=== PATIENT | female | born 1940 | race Caucasian/White ===

== ENCOUNTER 2018-10-02 14:57 | Emergency (ER) | payer MEDICARE, OTHER ==
[~2018-10-02] VITALS: Ht 157.5 cm; Wt 72.6 kg
[~2018-10-02 14:57] MED LIST: ALPRAZOLAM1 M1 PO; CYMBALTA30 MG PO; METOPROLOL TAR100 MG PO; NORCO 7.5-3251 EACH PO; QUETIAPINE FUM100 MG PO; TEKTURNA300 MG PO
--- OUTSIDE RECORDS SUMMARY | 2018-10-02 15:01 | XMS REPORT | Summary of Care ---
Author Author [facility] [place] Organization [facility] [place] Address Unknown Phone Unavailable Encounter HQ Encntr_alias(FIN) [id number] Date(s): 09/24/17 - 09/24/17 [facility] [place] [address] [place] [phone] Discharge Disposition: Home or Self Care Attending Physician: Jhon Hadley MD Vital Signs No data available for this section Problem List No data available for this section Allergies, Adverse Reactions, Alerts Substance Reaction Severity Status codeine Active Medications No data available for this section Results No data available for this section Immunizations No data available for this section Procedures No data available for this section Social History No data available for this section Assessment and Plan No data available for this section
--- OUTSIDE RECORDS SUMMARY | 2018-10-02 15:01 | XMS REPORT | Summary of Care ---
Author Author [facility] [place] Organization [facility] [place] Address Unknown Phone Unavailable Encounter HQ Jessicantr_alicon(FIN) [id number] Date(s): 04/10/16 - 04/10/16 [facility] [place] [address] [place] [address]- [facility] [phone] Discharge Disposition: Home Attending Physician: Didi Rubalcava MD Vital Signs No data available for [...]
[2018-10-02] MEDS ORDERED: HYDROCODONE/APAP 7.5MG-325MG 1 EA TAB PO PRN ×2 (15:15→15:30)
--- NOTE | 2018-10-02 16:57 | Diagnostic Imaging Report ---
EXAM: CT Pelvis WITHOUT contrast INDICATION: ^left hip pain r/o fx ^[id number] ^[id number] COMPARISON: None. TECHNIQUE: Pelvis were scanned utilizing a multidetector helical scanner from the iliac crest to the pubic symphysis without administration of IV contrast. Coronal and sagittal reformations were obtained. Routine protocol was performed. IV CONTRAST: None ORAL CONTRAST: Water COMPLICATIONS: None RADIATION DOSE: Total DLP: 394.93 mGy*cm Estimated effective dose: (DLP x 0.015 x size factor) mSv CTDIvol has been reviewed. It is below the limits set by the Radiation Protocol Committee (RPC). FINDINGS: LINES and TUBES: None. GI TRACT: No evidence of bowel obstruction. Severe diverticulosis of the visualized colon without evidence of diverticulitis. PELVIC ORGANS/BLADDER: Uterus and adnexa are unremarkable on unenhanced CT assessment. Bladder is not fully distended and appears unremarkable. LYMPH NODES: No lymphadenopathy. VESSELS: Mild aortoiliac atherosclerotic calcification. PERITONEUM / RETROPERITONEUM: No free air or fluid. BONES: Degenerative changes of lower lumbar spine. No acute osseous abnormality. SOFT TISSUES: Unremarkable. IMPRESSION: 1. No evidence of left hip fracture. 2. Colonic diverticulosis without evidence of diverticulitis. Signed by: Dr. Ron Childress MD on 10/02/2018 4:54 PM
== END 2018-10-02 19:45 | disposition home or self-care (01) ==
LOC: ER 14:57
DX: M54.42 Lumbago with sciatica, left side (principal); R26.2 Difficulty in walking, not elsewhere classified; I10 Essential (primary) hypertension
CPT/HCPCS: 72192; 99283

== ENCOUNTER 2019-07-06 18:22 | Inpatient (IN) | payer MEDICARE, OTHER ==
[~2019-07-06] VITALS: Ht 157.5 cm; Wt 78.6 kg
--- OUTSIDE RECORDS SUMMARY | 2019-07-06 18:26 | XMS REPORT | Continuity of Care Document ---
Author Author [facility] Organization [facility] Address Unknown Phone Unavailable Care Team Providers Care Insurance Claims Adjuster Name Role Phone [facility] Unavailable Unavailable Problems Problem Status Onset Date Classification Date Reported Comments Source R05 - COUGH Active 09/23/2017 [facility] Medications No Data Provided for This Section Allergies, Adverse Reactions, Alerts Substance Category Reaction Severity Reaction type Status Date Reported Comments Source codeine Assertion Drug allergy Active [facility] Immunizations No Data Provided for This Section Results No Data Provided for This Section Pathology Reports No Data Provided for This Section Diagnostic Reports Report Value Date Source Chest 2 views DX Exam: Two-view chest x-ray Reason for Exam: - chronic cough Comparison Exam: X-ray 04/10/2016 Discussion: Cardiomediastinal silhouette is within normal limits for size. Large air-fluid level is seen overlying the mediastinum most compatible with a hiatal hernia. This a chronic finding. No pleural effusion identified. No focal lung consolidations appreciated. No appreciable evidence seen for pneumothorax. No acute bony abnormalities. Impression: 1. Chronic large hiatal hernia. Lung parenchyma is unremarkable. 09/24/2017 [facility] Chest 2 views DX CHEST PA AND LATERAL History: 75-year-old female with cough. Comparison: None. Findings: Lungs: The lungs are expanded without an infiltrate, consolidation or nodule. Pleura: No pleural effusion. Mediastinum and pattie: Unremarkable. A large retrocardiac hiatal hernia noted. Heart size: Normal. Skeletal: Bones are osteopenic with mild osteoarthritic changes throughout spine. IMPRESSION: There is no acute cardio pulmonary abnormality. Large retrocardiac hiatal hernia. 04/10/2016 [facility] Consultation Notes No Data Provided for This Section Discharge Summaries No Data Provided for This Section History and Physicals No Data Provided for This Section Vital Signs No Data Provided for This Section Encounters Location Location Details Encounter Type Encounter Number Reason For Visit Attending Provider ADM Date DC Date Status Source [facility] [place] Out[facility] [id number] Didi Rubalcava 04/10/2016 04/11/2016 [facility] [place] [facility] [id number] Jhon Hadley 09/24/2017 09/25/2017 [facility] Procedures No Data Provided for This Section Assessment and Plan No Data Provided for This Section Plan of Care No Data Provided for This Section Social History Social History Date Source No data available for this section 09/25/2017 [facility] Family History No Data Provided for This Section Advance Directives No Data Provided for This Section Functional Status No Data Provided for This Section
[2019-07-06] MEDS ORDERED: SODIUM CHLORIDE 0.9% 1000ML 1,000 ML IV STA (18:38)
[2019-07-06] MEDS ORDERED: ONDANSETRON HCL INJ 2MG/ML 2ML 2 MG/ML VIAL IV NR (18:45)
[2019-07-06] MEDS ORDERED: ASPIRIN 81 MG CHEW TAB PO ONE (18:45)
[2019-07-06 18:58] LABS: BASOPHILS # (AUTO) 0.1 (0.0-0.1); BASOPHILS % 0.8 % (0.0-1.0); EOSINOPHILS # (AUTO) 0.1 (0.0-0.4); EOSINOPHILS % 1.8 % (0.0-6.0); HEMATOCRIT 35.1 % (34.2-44.1); HEMOGLOBIN 11.9 g/dL (12.0-16.0); LYMPHOCYTES # (AUTO) 2.4 (1.0-3.2); LYMPHOCYTES % 32.7 % (18.0-39.1); MEAN CORPUSCULAR HEMOGLOBIN 27.9 pg (28-32); MEAN CORPUSCULAR HGB CONC 33.9 g/dL (31-35); MEAN CORPUSCULAR VOLUME 82.4 fL (81-99); MONOCYTES # (AUTO) 0.8 (0.2-0.8); MONOCYTES % 10.9 % (4.4-11.3); NEUTROPHILS % 53.4 % (38.7-80.0); PLATELET COUNT 399 x10e3/uL (140-360); RED BLOOD COUNT 4.26 x10e6/uL (3.6-5.1); RED CELL DISTRIBUTION WIDTH 16.9 % (11.7-14.4)
[2019-07-06 19:06] LABS: INR 0.81; PROTHROMBIN TIME 11.7 seconds (11.9-14.5)
[2019-07-06 19:07] LABS: PARTIAL THROMBOPLASTIN TIME 26.2 seconds (23.8-35.5)
[2019-07-06 19:16] LABS: ALANINE AMINOTRANSFERASE 6 IU/L (0-55); ALBUMIN 4.1 g/dL (3.5-5.0); ALBUMIN/GLOBULIN RATIO 1.2 (0.8-2.0); ALKALINE PHOSPHATASE 66 IU/L (40-150); BLOOD UREA NITROGEN 16 mg/dL (7-26); BUN/CREATININE RATIO 19 (6-25); CALCIUM 9.4 mg/dL (8.4-10.2); CARBON DIOXIDE 26 mmol/L (22-29); CHLORIDE 84 mmol/L (98-107); CREATINE KINASE 71 IU/L (29-168); CREATININE, SERUM 0.86 mg/dL (0.57-1.11); EST GLOMERULAR FILTRATION RATE > 60 ML/MIN (60-); GLUCOSE 100 mg/dL (74-118)
[2019-07-06 19:23] LABS: B-TYPE NATRIURETIC PEPTIDE2 34.5 pg/mL (0-100)
[2019-07-06 19:24] LABS: SODIUM 118 mmol/L (136-145)
--- NOTE | 2019-07-06 19:26 | NUR ---
STRAIGHT CATH PERFORMED, SPECIMEN COLLECTED AND SENT TO LAB. TOLERATED WELL.
--- NOTE | 2019-07-06 19:30 | Diagnostic Imaging Report ---
Exam: Head CT without contrast History: Weakness, nausea Comparison studies: None Technique: Axial images were obtained from the skull base to the vertex. Coronal and sagittal images reconstructed from the axial data. Dose modulation, iterative reconstruction, and/or weight based adjustment of the mA/kV was utilized to reduce the radiation dose to as low as reasonably achievable. Radiation dose: Total DLP: 921 mGy*cm. Estimated effective dose: DLP x 0.015 Intravenous contrast: None Findings: Scalp: No abnormalities. Bones: No fractures, blastic or lytic lesions. Ventricles: Mild compensatory dilatation. No hydrocephalus. Extra-axial spaces: No masses, no fluid collection. Parenchyma: Mild generalized parenchymal volume loss with a frontotemporal predominance. No mass, acute hemorrhage or acute or chronic cortical insults. A few scattered ill-defined and mildly confluent hypodensities in the supratentorial white matter are nonspecific but are most compatible with chronic microvascular ischemic changes. Sellar/suprasellar region: No abnormalities. Craniocervical junction: Patent foramen magnum. No Chiari one malformation. Incidental findings: Lens replacement related to previous cataract surgery. Atherosclerotic calcifications in the carotid siphons and intradural vertebral arteries. IMPRESSION: No acute intracranial abnormalities. Chronic findings: 1. Moderate microvascular ischemic changes. 2. Mild generalized parenchymal volume loss with a frontotemporal predominance. Signed by: Dr. Josué Bay M.D. on 07/06/2019 7:26 PM
[2019-07-06 19:32] LABS: BILIRUBIN,URINE NEGATIVE (NEGATIVE); CLARITY,URINE SL CLOUDY (CLEAR); COLOR,URINE YELLOW (YELLOW); KETONES,URINE NEGATIVE (NEGATIVE); LEUKOCYTE ESTERASE ,URINE NEGATIVE (NEGATIVE); NITRITE,URINE NEGATIVE (NEGATIVE); PROTEIN,URINE DIPSTICK TRACE (NEGATIVE); URINE UROBILINOGEN 1 mg/dL (0.2 - 1)
--- NOTE | 2019-07-06 19:40 | Diagnostic Imaging Report ---
EXAMINATION: CHEST SINGLE (PORTABLE) INDICATION: ^ERMD ORDER ^[id number] ^[id number] ^Y COMPARISON: 08/29/2012 FINDINGS: AP view TUBES and LINES: None. LUNGS: Lungs are well inflated. Lungs are clear. There is no evidence of pneumonia or pulmonary edema. Retrocardiac density, suspicious for hiatal hernia. PLEURA: No pleural effusion or pneumothorax. HEART AND MEDIASTINUM: The cardiomediastinal silhouette is prominent. BONES AND SOFT TISSUES: No acute osseous lesion. Degenerative changes of the shoulder joints. Soft tissues are unremarkable. UPPER ABDOMEN: No free air under the diaphragm. IMPRESSION: No acute thoracic abnormality. Retrocardiac density, suspicious for hiatal hernia. Signed by: Dr. Ron Childress MD on 07/06/2019 7:37 PM
[2019-07-06 19:46] LABS: BACTERIA,URINE RARE /HPF; EPITHELIAL CELLS,URINE FEW /LPF
[2019-07-06] MEDS: SODIUM CHLORIDE 0.9% 1000ML 1,000 ML IV SCH (20:07)
[2019-07-06] MEDS ORDERED: ONDANSETRON HCL INJ 2MG/ML 2ML 2 MG/ML VIAL IV PRN (20:15)
--- OUTSIDE RECORDS SUMMARY | 2019-07-06 20:28 | XMS REPORT | Continuity of Care Document ---
Author Author [employer] Organization [employer] Address Unknown Phone Unavailable Care Team Providers Care Semiconductor Engineer Name Role Phone [employer] Unavailable Unavailable Problems Problem Status Onset Date Classification Date Reported Comments Source R05 - COUGH Active 09/23/2017 [facility] Medications No Data Provided for This Section Allergies, Adverse Reactions, Alerts Substance Category Reaction Severity Reaction type Status Date Reported Comments Source codeine Assertion Drug allergy Active [facility] Immunizations No Data Provided for This Section [...] hernia. Lung parenchyma is unremarkable. 09/24/2017 [facility] Chest 2 views DX CHEST PA AND [...] abnormality. Large retrocardiac hiatal hernia. 04/10/2016 [facility] Consultation Notes No Data Provided for This Section Discharge Summaries No Data Provided for This Section History and Physicals No Data Provided for This Section Vital Signs No Data Provided for This Section Encounters Location Location Details Encounter Type Encounter Number Reason For Visit Attending Provider ADM Date DC Date Status Source [facility] [place] [facility] [id number] Didi Rubalcava 04/10/2016 04/11/2016 [facility] [place] [facility] [id number] Jhon Hadley 09/24/2017 09/25/2017 [facility] Procedures No Data Provided for This Section Assessment and Plan No Data Provided for This Section Plan of Care No Data Provided for This Section Social History Social History Date Source No data available for this section 09/25/2017 [facility] Family History No Data Provided for This Section Advance Directives No Data Provided for This Section Functional Status No Data Provided for This Section
--- OUTSIDE RECORDS SUMMARY | 2019-07-06 20:29 | XMS REPORT ---
Author [facility] Address Unknown Phone Unavailable Care Team Providers Care Radio Program Director Name Role Phone Alejandro ORTEZ Unavailable Unavailable Melissa SILVA Unavailable Unavailable Payers Payer Name Policy Type Policy Number Effective Date Expiration Date Problems This patient has no known problems. Allergies, Adverse Reactions, Alerts Allergy Name Allergy Type Status Severity Reaction(s) Onset Date Inactive Date Treating Clinician Comments tramadol DA Active SV 2018-10-07 00:00:00 codeine DA Active DC 2015-04-13 00:00:00 iodine DA Active SV 2015-04-13 00:00:00 ciprofloxacin DA Active DC 2015-04-13 00:00:00 Medications This patient has no known medications. Results Test Description Test Time Test Comments Text Results Atomic Results Result Comments CHEST SINGLE (PORTABLE) 2019-07-06 19:36:00 [place] [address] Patient Name: SPEEDY DE LEÓN MR #: [id number] : 1940 Age/Sex: 79/F Req #: [id number] Adm Physician: Ordered by: LISET TAYLOR BOWLING BALL PATCHER Report #: [id number] Location: ER Room/Bed: Procedure: DX/CHEST SINGLE (PORTABLE) Exam Date: 07/06/19 Exam Time: 1904 REPORT STATUS: Signed EXAMINATION: CHEST SINGLE (PORTABLE) JOSE D CATION: ERENDIRAD ORDER [id number] Y COMPARISON: 08/29/2012 FINDINGS: AP view TUBES and LINES: None. LUNGS: Lungs are well inflated. Lungs are clear. There is no evidence of pneumonia or pulmonary edema. Retrocardiac density, suspicious for hiatal hernia. PLEURA: No pleural effusion or pneumothorax. HEART AND MEDIASTINUM: The cardiomediastinal silhouette is prominent. BONES AND SOFT TISSUES: No acute osseous lesion. Degenerative changes of the shoulder joints. Soft tissues are unremarkable. UPPER ABDOMEN: No free air under the diaphragm. IMPRESSION: No acute thoracic abnormality. Retrocardiac density, suspicious for hiatal hernia. Signed by: Dr. Keily Gaffney MD on 07/06/2019 7:37 PM Dictated By: KEILY GAFFNEY MD 36 Transcribed By: JAVED on 07/06/191936 COPY TO: LISET TAYLOR BOWLING BALL PATCHER CT BRAIN WO 2019-07-06 19:21:00 [place] [address] Patient Name: SPEEDY DE LEÓN MR #: [id number] : 1940 Age/Sex: 79/F Req #: [id number] Adm Physician: Ordered by: LISET TAYLOR BOWLING BALL PATCHER Report #: [id number] Location: ER Room/Bed: Procedure: CT/CT BRAIN WO Exam Date: 07/06/19 Exam Time: 185 REPORT STATUS: Signed Exam: Head CT without contrast History: Weakness, nausea Comparison studies: None Technique: Axial images were obtained from the skull base to the vertex. Coronal and sagittal images reconstructed from the axial data. Dose modulation, iterative reconstruction, and/or weight based adjustment of the mA/kV was utilized to reduce the radiation dose to as low as reasonably achievable. Radiation dose: Total DLP: 921 mGy*cm. Estimated effective dose: DLP x 0.015 Intravenous contrast: None Findings: Scalp: No abnormalities. Bones: No fractures, blastic or lytic lesions. Ventricles: Mild compensatory dilatation. No hydrocephalus. Extra-axial spaces: No masses, no fluid collection. Parenchyma: Mild generalized parenchymal volume loss with a frontotemporal predominance. No mass, acute hemorrhage or acute or chronic cortical insults. A few scattered ill-defined and mildly confluent hypodensities in the supratentorial white matter are nonspecific but are most compatible with chronic microvascular ischemic changes. Sellar/suprasellar region: No abnormalities. Craniocervical junction: Patent foramen magnum. No Chiari one malformation. Incidental findings: Lens replacement related to previous cataract surgery. Atherosclerotic calcifications in the carotid siphons and intradural vertebral arteries. IMPRESSION: No acute intracranial abnormalities. Chronic findings: 1. Moderate microvascular ischemic changes. 2. Mild generalized parenchymal volume loss with a frontotemporal predominance. Signed by: Dr. Bo Donovan M.D. on 07/06/2019 7:26 PM Dictated By: BO DONOVAN MD 25 Transcribed By: JAVED on 07/06/191925 COPY TO: LISET TAYLOR NP COLON,BIOPSY 2018-12-22 13:47:00 RUN DATE: 12/22/18 [facility] PAGE 1 RUN TIME: 1347 Specimen Inquiry RUN USER: INTERFACE PATIENT: SPEEDY DE LEÓN LOC: MIRA U #: [id number] AGE/SX: 78/F [facility]: Williams Noriega MD : [birth year] BED: A DIS: STATUS: ADM IN TLOC: SPEC #: [id number]:[id number] RECD: 12/21/18 STATUS: KRUNAL SY #: [id number] NICHOLAS: 12/20/18 [facility] DR: Williams Noriega MD ENTERED: 12/21/18 SP TYPE: COLONBX OTHR DR: DOES_NOT KNOW Self Referred Deepthi Florentino MD, Tojo MDORDERED: SURG PATH [facility] 02/21 CODES: L90496 - CECUM, NOS A46025 J28637 - CECUM, NOS BIOPSY, NOS V96123 R27138 - CECUM, NOS TUBULAR ADENOMA A69619 V75487 - COLON, NOS BIOPSY, NOS M07589 G04419 - COLON, NOS TUBULAR ADENOMA COPIES TO: DOES_NOT KNOW Self Referred Deepthi Florentino MD [address] [place], [place] [id number] Williams Noriega MD [address] [facility] [address] [place] [address] [place] [address] [facility] [address] [place] [address] PROCEDURES: SURG PATH LVL 4 (12/21/18-1029) TISSUES: A. CECUM, NOS - CECAL POLYP BX B. DESCENDING COLON - DESCENDING COLON POLYP CLINICAL HISTORY HYPONATREMIA, HYPERKALEMIA, HYPOXIA CONTINUED ON NEXT PAGE RUN DATE: 12/22/18 [facility] - Lab PAGE 2 RUN TIME: 1347 Specimen Inquiry RUN USER: INTERFACE SPEC #: [id number]:HOOKER:[id number] PATIENT: SPEEDY DE LEÓN #[id number] (Continued) CPT CODES CPT CODE(S): 77062V3 , , , , , , FINAL DIAGNOSIS A. Colon, cecum, biopsy: TUBULAR ADENOMA B. Colon, descending, biopsy: TUBULAR ADENOMA GROSS DESCRIPTION A. Cecal polyp. The specimen consists of three fragments measuring 2 mm each, submitted as A1. B. Descending colon polyp. The specimen consists of three fragments measuring 3-4 mm, submitted as B1. /tc/cm MICROSCOPIC DESCRIPTION A. Cecal polyp. The polyp contains glands with decreased mucin that are lined by columnar cells with stratified nuclei that have increased mitotic activity but have not lost their polarity. B. Descending colon polyp. The polyp contains glands with decreased mucin that are lined by columnar cells with stratified nuclei that have increased mitotic activity but have not lost their polarity. Signed SIGNATURE ON FILE Simi Bright Jerry 12/22/18 1347 END OF REPORT - CT ABD PELVIS W/CONT 2018-12-21 17:26:00 Patient Name: SPEEDY DE LEÓN Unit No: [id number] EXAMS: CPT CODE: [id number] CT ABD PELVIS W/CONT 01446 CT Abdomen and Pelvis with contrast. Location: B2 Clinical indication: 78-year-old with anemia Comparison: February 23, 2010 Technique: Computed axial images were obtained from the diaphragms through the pubic symphysis following IV administration of 100 mL Isovue-300. Up to date CT equipment and radiation dose technique were utilized. Findings: Abdomen: A large hiatal hernia is present. The liver, spleen, adrenal glands, and pancreas are without acute abnormality. There is a 1 cm low- density structure in the quadrate lobe of the liver, likely cyst. There is mild renal cortical thinning. No hydronephrosis. There is atherosclerotic calcification of the abdominal aorta. No bowel obstruction. Pelvis: The appendix is not identified. No pericecal inflammation or fluid. There is extensive distal colon diverticulosis. There is focal wall thickening of the descending colon, with some questionable mild adjacent hazy inflammation. Urinary bladder is partially distended. Uterus is present. No acute osseous abnormality. Impression: 1. Circumferential wall thickening of the descending colon, mild. Differential considerations include colitis and neoplasm. Further evaluation is recommended. 2. Sigmoid diverticulosis. 3. Large hiatal hernia. at 1726 Reported and signed by: Willie Miller M.D. CC: Williams Noriega; Melvi Goss NP Technologist: Ingrid Dorsey RT(R)(CT); Beny Hughes CTDI: DLP: Trnscrpt: 12/21/2018 (2468) [email or web address] ANASTACIA CHOWDHURY [place] NAME: SPEEDY DE LEÓN [address] PHYS: [place] [address] : 1940 AGE: 78 SEX: F LOC: Z.345 A PHONE #: [phone] EXAM DATE: 12/21/2018 STATUS: ADM IN FAX #: [phone] RAD #: D/C DT PAGE 1 Signed Report Patient Name: SPEEDY DE LEÓN Unit No: [id number] EXAMS: CPT CODE: [id number] CT ABD PELVIS W/CONT 18639 <Continued> Orig Print D/T: S: 12/21/2018 (6313) ANASTACIA Lee NAME: SPEEDY DE LEÓN [address] PHYS: [place] [address] : 1940 AGE: 78 SEX: F LOC: Z.345 A PHONE #: [phone] EXAM DATE: 12/21/2018 STATUS: ADM IN FAX #: [phone] RAD #: D/C DT PAGE 2 Signed Report B-TYPE NATRIURETIC PEPTIDE 2018-12-21 13:35:00 B-TYPE NATRIURETIC PEPTIDE (test code=BNP) 100.0 PG/ML 0-100 GASTRIC,[id number] 11:10:00 RUN DATE: 12/21/18 [facility] - Lab PAGE 1 RUN TIME: 1110 Specimen Inqui ry RUN USER: INTERFACE PATIENT: SPEEDY DE LEÓN ACCT #: [id number] [facility] U #: [id number] AGE/SX: 78/F ROOM: [facility] RE12/15/18[facility] DR: Williams Noriega MD : [birth year] BED: A DIS: STATUS: ADM IN TLOC: SPEC #: [id number]:HOOKER:[id number] RECD: 12/20/18 STATUS: KRUNAL REQ #: [id number] NICHOLAS: 12/20/[address]: Williams Noriega ENTERED: 12/20/18 SP TYPE: GASTRIC BX OT DR: DOES_N OT KNOW Self Referred Deepthi Gupta MD, T ojo MDORDERED: SURG PATH [facility] 4 CODES: P45662 S14125 - STOMACH, NOS BIOPSY, NOS R75635 - GASTRIC ANTRUM COPIES TO: DOES_NOT KNOW Self Referred Deepthi Florentino MD [address] [place] [address] [address] [place] [address] Williams Noriega MD [address] [facility] [address] [place] [address] [place] [address] [address] [place] [address] PROCEDURES: SURG PATH LVL 4 (12/20/18-1013) TISSUES: A. GASTRIC ANTRUM - RANDOM GASTRIC BX CLINICAL HISTORY HYPONATREMIA, HYPERKALEMIA, HYPOXIA CPT CODES CPT CODE(S): 56684 , , , , , , CONTINUED ON NEXT PAGE RUN DATE: 12/21/18 [facility] PAGE 2 RUN TIME: 1110 Specimen Inquiry RUN USER: INTERFACE SPEC #: [id number]:[id number] PATIENT: SPEEDY DE LEÓN #[id number] (Continued) FINAL D IAGNOSIS Stomach, random, biopsy: MILD REACTIVE CHANGES NO SIGNIFICA NT INFLAMMATORY ACTIVITY NO HELICOBACTER ORGANISMS IDENTIFIED GROSS DE SCRIPTION Random gastric biopsy. The specimen consists of two fragments jackie uring 2 mm and 3 mm, submitted as A1. /tc/cm MICROSCOPIC DESCRIPTION R andom gastric biopsy. Sections of corpus demonstrate no significant inflammator y activity. There is mild stromal retraction with immature fibrosis, and incr eased cell turnover. There is no histologic evidence of Helicobacter infectio n. /cm Signed SIGNATURE ON FILE Manoj Ryan puja 12/21/18 1110 END OF REPORT BASIC METABOLIC [id number] 08:50:00* Test Item Value Reference Range Comments SODIUM (test code=NA) 134 MMOL/L 137-145 POTASSIUM (test code=K) 3.8 MMOL/L 3.5-5.1 CHLORIDE (test code=CL) 95 MMOL/L 98-107 CARBON DIOXIDE (test code=CO2) 29 MMOL/L 22-30 GLUCOSE (test code=GLU) 107 MG/DL 74-106 BLOOD UREA NITROGEN (test code=BUN) 12 MG/DL 7-17 GLOMERULAR FILTRATION RATE (test code=GFR) > 60 Reporting units: ml/min/1.73 m2 (Modified MDRD Formula)Reference Range: > or=60 ml/min/1.73 m2 CREATININE (test code=CREAT) 0.60 MG/DL 0.52-1.04 CALCIUM (test code=CA) 9.5 MG/DL 8.4-10.2 CBC W/AUTO [id number] 06:32:00* Test Item Value Reference Range Comments WHITE BLOOD CELL (test code=WBC) 9.2 K/MM3 3.8-9.8 RED BLOOD CELL (test code=RBC) 4.06 M/MM3 3.58-4.97 HEMOGLOBIN (test code=HGB) 9.4 G/DL 11.2-14.9 HEMATOCRIT (test code=HCT) 30.4 % 33.2-43.5 MEAN CELL VOLUME (test code=MCV) 75 fL 80.7-99.1 MEAN CELL HGB (test code=MCH) 23.2 pg 27.0-34.1 MEAN CELL HGB CONCETRATION (test code=MCHC) 30.9 % 32.2-35.7 RED CELL DISTRIBUTION WIDTH (test code=RDW) 18.8 % 12.1-15.2 PLATELET COUNT (test code=PLT) 355 K/MM3 129-368 MEAN PLATELET VOLUME (test code=MPV) 8.5 fl 7.4-10.4 NEUTROPHIL % (test code=NT%) 50.7 % 43-75 IMMATURE GRANULOCYTE % (test code=IG%) 0.3 % 0.0-2.0 LYMPHOCYTE % (test code=LY%) 32.4 % 14-44 MONOCYTE % (test code=MO%) 11.7 % 4-13 EOSINOPHIL % (test code=EO%) 4.1 % 0-6 BASOPHIL % (test code=BA%) 0.8 % 0-2 NUCLEATED RBC % (test code=NRBC%) 0.2 % 0-1.0 NEUTROPHIL # (test code=NT#) 4.7 K/mm3 2.0-7.6 IMMATURE GRANULOCYTE # (test code=IG#) 0.03 x10 3/uL 0-0.03 LYMPHOCYTE # (test code=LY#) 3.0 K/mm3 1.0-3.8 MONOCYTE # (test code=MO#) 1.08 K/mm3 0.1-0.8 EOSINOPHIL # (test code=EO#) 0.4 K/mm3 0.0-0.2 BASOPHIL # (test code=BA#) 0.07 K/mm3 0.0-0.2 NUCLEATED RBC # (test code=NRBC#) 0.0 K/mm3 0.0-0.1 HGB [id number] 02:50:00* Test Item Value Reference Range Comments HEMOGLOBIN (test code=HGB) 9.5 G/DL 11.2-14.9 HEMATOCRIT (test code=HCT) 31.7 % 33.2-43.5 GLUCOSE BEDSIDE [id number] 11:56:00* Test Item Value Reference Range Comments GLUCOSE BEDSIDE TESTING (test code=GLUBED) 197 MG/DL 60-99 LIPOPROTEIN LDL [id number] 08:48:00* Test Item Value Reference Range Comments LIPOPROTEIN LDL DIRECT (test code=LDLDIR) 116 mg/dL 100-129 Reference Interval: mg/dL mmol/L Optimal <100 <2.6Near/above optimal 100-129 2.6- 3.3Borderline High 130-159 3.4-4.1High 160-189 4.1-4.9Very High >=190 >=4.9=========This LDL result is a direct measurement.========= Comments to Monogram And Letter Paster: PLEASE ADD TO THIS AM LAB DR KENDRICKALREADY DRAWN.AFHAUIVW-[id number] 08:48:00* Test Item Value Reference Range Comments TROPONIN-I (test code=TROPI) 0.113 NG/ML 0.012-0.033 Comments to Monogram And Letter Paster: PLEASE ADD TO THIS AM LAB DR KENDRICKALREADY DRAWN.LIPOPROTEIN LDL [id number] 08:31:00* Test Item Value Reference Range Comments LIPOPROTEIN LDL DIRECT (test code=LDLDIR) mg/dL 100-129 Comments to Monogram And Letter Paster: PLEASE ADD TO THIS AM LAB DR KENDRICKALREADY DRAWN.[id number] 08:31:00* Test Item Value Reference Range Comments TROPONIN-I (test code=TROPI) 0.113 NG/ML 0.012-0.033 Comments to Monogram And Letter Paster: PLEASE ADD TO THIS AM LAB DR ALLRED...ALREADY DRAWN.- XR CHEST [id number] 07:59:00 Patient Name: SPEEDY DE LEÓN Unit No: [id number] EXAMS: CPT CODE: [id number] XR CHEST 1V 33377 Location of dictation: B2 Portable chest one view. HISTORY: follow up COMMENT: Compared to 04/13/2015. Cardiac silhouette is stable. There are scattered aortic calcifications. The lungs are free of focal consolidation, pneumothorax or effusion. There may be scattered pleural plaques overlying the left upper lobe. The chest wall is intact. Visualized soft tissues and skeletal structures are unremarkable. There has been no significant changes. IMPRESSION: No active disease in the chest. at 0759 Reported and signed by: Teresa Worthy M.D. CC: Williams Goss NP Technologist: Sara Curtis RT(R) Transcrpt Date/Tm/Trnsp: 12/20/2018 (0759) [email or web address] Orig Print D/T: S: 12/20/2018 (0802) [facility] NAME: SPEEDY DE LEÓN [address] PHYS: THOSH.[email or web address] - [place] [address] : 1940 AGE: 78 SEX: F LOC: Z.345 A PHONE #: [phone] EXAM DATE: 12/20/2018 STATUS: ADM IN FAX #: [phone] RADIOLOGY NO: PAGE 1 Signed Report BASIC METABOLIC [id number] 07:28:00* Test Item Value Reference Range Comments SODIUM (test code=NA) 130 MMOL/L 137-145 POTASSIUM (test code=K) 4.1 MMOL/L 3.5-5.1 CHLORIDE (test code=CL) 96 MMOL/L 98-107 CARBON DIOXIDE (test code=CO2) 26 MMOL/L 22-30 GLUCOSE (test code=GLU) 105 MG/DL 74-106 BLOOD UREA NITROGEN (test code=BUN) 18 MG/DL 7-17 GLOMERULAR FILTRATION RATE (test code=GFR) > 60 Reporting units: ml/min/1.73 m2 (Modified MDRD Formula)Reference Range: > or=60 ml/min/1.73 m2 CREATININE (test code=CREAT) 0.70 MG/DL 0.52-1.04 CALCIUM (test code=CA) 9.5 MG/DL 8.4-10.2 CBC W/AUTO [id number] 07:06:00* Test Item Value Reference Range Comments WHITE BLOOD CELL (test code=WBC) 9.0 K/MM3 3.8-9.8 RED BLOOD CELL (test code=RBC) 3.36 M/MM3 3.58-4.97 HEMOGLOBIN (test code=HGB) 7.5 G/DL 11.2-14.9 HEMATOCRIT (test code=HCT) 25.2 % 33.2-43.5 MEAN CELL VOLUME (test code=MCV) 75 fL 80.7-99.1 MEAN CELL HGB (test code=MCH) 22.3 pg 27.0-34.1 MEAN CELL HGB CONCETRATION (test code=MCHC) 29.8 % 32.2-35.7 RED CELL DISTRIBUTION WIDTH (test code=RDW) 19.5 % 12.1-15.2 PLATELET COUNT (test code=PLT) 367 K/MM3 129-368 MEAN PLATELET VOLUME (test code=MPV) 8.9 fl 7.4-10.4 NEUTROPHIL % (test code=NT%) 47.1 % 43-75 IMMATURE GRANULOCYTE % (test code=IG%) 0.6 % 0.0-2.0 LYMPHOCYTE % (test code=LY%) 38.0 % 14-44 MONOCYTE % (test code=MO%) 9.7 % 4-13 EOSINOPHIL % (test code=EO%) 3.9 % 0-6 BASOPHIL % (test code=BA%) 0.7 % 0-2 NUCLEATED RBC % (test code=NRBC%) 0.0 % 0-1.0 NEUTROPHIL # (test code=NT#) 4.2 K/mm3 2.0-7.6 IMMATURE GRANULOCYTE # (test code=IG#) 0.05 x10 3/uL 0-0.03 LYMPHOCYTE # (test code=LY#) 3.4 K/mm3 1.0-3.8 MONOCYTE # (test code=MO#) 0.87 K/mm3 0.1-0.8 EOSINOPHIL # (test code=EO#) 0.4 K/mm3 0.0-0.2 BASOPHIL # (test code=BA#) 0.06 K/mm3 0.0-0.2 NUCLEATED RBC # (test code=NRBC#) 0.0 K/mm3 0.0-0.1 B-TYPE NATRIURETIC [id number] 16:05:00* Test Item Value Reference Range Comments B-TYPE NATRIURETIC PEPTIDE (test code=BNP) 74.0 PG/ML 0-100 BASIC METABOLIC [id number] 15:46:00* Test Item Value Reference Range Comments SODIUM (test code=NA) 131 MMOL/L 137-145 POTASSIUM (test code=K) 4.1 MMOL/L 3.5-5.1 CHLORIDE (test code=CL) 97 MMOL/L 98-107 CARBON DIOXIDE (test code=CO2) 26 MMOL/L 22-30 GLUCOSE (test code=GLU) 114 MG/DL 74-106 BLOOD UREA NITROGEN (test code=BUN) 17 MG/DL 7-17 GLOMERULAR FILTRATION RATE (test code=GFR) > 60 Reporting units: ml/min/1.73 m2 (Modified MDRD Formula)Reference Range: > or=60 ml/min/1.73 m2 CREATININE (test code=CREAT) 0.80 MG/DL 0.52-1.04 CALCIUM (test code=CA) 9.0 MG/DL 8.4-10.2 CBC W/AUTO [id number] 15:33:00* Test Item Value Reference Range Comments WHITE BLOOD CELL (test code=WBC) 9.2 K/MM3 3.8-9.8 RED BLOOD CELL (test code=RBC) 3.31 M/MM3 3.58-4.97 HEMOGLOBIN (test code=HGB) 7.5 G/DL 11.2-14.9 HEMATOCRIT (test code=HCT) 25.0 % 33.2-43.5 MEAN CELL VOLUME (test code=MCV) 76 fL 80.7-99.1 MEAN CELL HGB (test code=MCH) 22.7 pg 27.0-34.1 MEAN CELL HGB CONCETRATION (test code=MCHC) 30.0 % 32.2-35.7 RED CELL DISTRIBUTION WIDTH (test code=RDW) 19.0 % 12.1-15.2 PLATELET COUNT (test code=PLT) 353 K/MM3 129-368 MEAN PLATELET VOLUME (test code=MPV) 8.8 fl 7.4-10.4 NEUTROPHIL % (test code=NT%) 56.4 % 43-75 IMMATURE GRANULOCYTE % (test code=IG%) 0.4 % 0.0-2.0 LYMPHOCYTE % (test code=LY%) 29.3 % 14-44 MONOCYTE % (test code=MO%) 10.6 % 4-13 EOSINOPHIL % (test code=EO%) 2.9 % 0-6 BASOPHIL % (test code=BA%) 0.4 % 0-2 NUCLEATED RBC % (test code=NRBC%) 0.0 % 0-1.0 NEUTROPHIL # (test code=NT#) 5.2 K/mm3 2.0-7.6 IMMATURE GRANULOCYTE # (test code=IG#) 0.04 x10 3/uL 0-0.03 LYMPHOCYTE # (test code=LY#) 2.7 K/mm3 1.0-3.8 MONOCYTE # (test code=MO#) 0.97 K/mm3 0.1-0.8 EOSINOPHIL # (test code=EO#) 0.3 K/mm3 0.0-0.2 BASOPHIL # (test code=BA#) 0.04 K/mm3 0.0-0.2 NUCLEATED RBC # (test code=NRBC#) 0.0 K/mm3 0.0-0.1 GLUCOSE BEDSIDE [id number] 11:55:00* Test Item Value Reference Range Comments GLUCOSE BEDSIDE TESTING (test code=GLUBED) 156 MG/DL 60-99 LIPID PROFILE (CORONARY RISK)2018-12-19 10:46:00* Test Item Value Reference Range Comments TRIGLYCERIDES (test code=TRIG) 329 MG/DL TRIGLYCERIDES REFERENCE RANGE:Normal: <150 mg/dLBorderline High: 150-199 mg/dLHigh: 200-499 mg/dLVery High: >=500 mg/dL CHOLESTEROL (test code=CHOL) 202 MG/DL <200 HDL CHOLESTEROL (test code=HDL) 47 MG/DL 40-59 LIPOPROTEIN LDL (test code=LDL) 113 MG/DL 0-99 OPTIMAL.........<100 mg/dLNEAR OPTIMAL/ABOVE OPTIMAL.........100-129 mg/dL BORDERLINE HIGH.........130-159 mg/dL HIGH.........160-189 mg/dL VERY HIGH.........>/=190 mg/dL UNABLE TO DRAW BLOOD, REASON: PT REFUSEDNOTIFIED PATIENT CARE STAFF: IVETTE AT 0654 BY Erik TorresLIPID PROFILE (CORONARY RISK)2018-12-19 10:31:00 * Test Item Value Reference Range Comments TRIGLYCERIDES (test code=TRIG) 329 MG/DL TRIGLYCERIDES REFERENCE RANGE:Normal: <150 mg/dLBorderline High: 150-199 mg/dLHigh: 200-499 mg/dLVery High: >=500 mg/dL CHOLESTEROL (test code=CHOL) 202 MG/DL <200 HDL CHOLESTEROL (test code=HDL) 47 MG/DL 40-59 LIPOPROTEIN LDL (test code=LDL) MG/DL 0-99 UNABLE TO DRAW BLOOD, REASON: PT REFUSEDNOTIFIED PATIENT CARE STAFF: IVETTE AT 0654 BY Carole TorresAovqhhPRCRKBPH-[id number] 03:55:00* Test Item Value Reference Range Comments TROPONIN-I (test code=TROPI) 0.202 NG/ML 0.012-0.033 CALLED TO Julia POLLARD& READBACK ON 12/18/18 AT 0355 BY Knu Solorzano [id number] 18:36:00* Test Item Value Reference Range Comments TROPONIN-I (test code=TROPI) 0.240 NG/ML 0.012-0.033 CALLED TO BENJI Caban& READBACK ON 12/17/18 AT 1836 BY Kun Solorzano Comments to Monogram And Letter Paster: [id number] 12:23:00* Test Item Value Reference Range Comments TROPONIN-I (test code=TROPI) 0.156 NG/ML 0.012-0.033 CALLED TO NADINE LEBLANC V TROPI=0.156& READBACK ON 12/17/18 AT 1223 BY Ender Reyna [id number] 07:12:00* Test Item Value Reference Range Comments FERRITIN (test code=SIMONE) 9.4 NG/ML 11.1-264 CBC W/AUTO [id number] 07:01:00* Test Item Value Reference Range Comments WHITE BLOOD CELL (test code=WBC) 11.2 K/MM3 3.8-9.8 RED BLOOD CELL (test code=RBC) 3.58 M/MM3 3.58-4.97 HEMOGLOBIN (test code=HGB) 8.1 G/DL 11.2-14.9 HEMATOCRIT (test code=HCT) 26.6 % 33.2-43.5 MEAN CELL VOLUME (test code=MCV) 74 fL 80.7-99.1 MEAN CELL HGB (test code=MCH) 22.6 pg 27.0-34.1 MEAN CELL HGB CONCETRATION (test code=MCHC) 30.5 % 32.2-35.7 RED CELL DISTRIBUTION WIDTH (test code=RDW) 18.5 % 12.1-15.2 PLATELET COUNT (test code=PLT) 376 K/MM3 129-368 MEAN PLATELET VOLUME (test code=MPV) 8.7 fl 7.4-10.4 NEUTROPHIL % (test code=NT%) 51.9 % 43-75 IMMATURE GRANULOCYTE % (test code=IG%) 0.7 % 0.0-2.0 LYMPHOCYTE % (test code=LY%) 34.7 % 14-44 MONOCYTE % (test code=MO%) 9.5 % 4-13 EOSINOPHIL % (test code=EO%) 2.7 % 0-6 BASOPHIL % (test code=BA%) 0.5 % 0-2 NUCLEATED RBC % (test code=NRBC%) 0.0 % 0-1.0 NEUTROPHIL # (test code=NT#) 5.8 K/mm3 2.0-7.6 IMMATURE GRANULOCYTE # (test code=IG#) 0.08 x10 3/uL 0-0.03 LYMPHOCYTE # (test code=LY#) 3.9 K/mm3 1.0-3.8 MONOCYTE # (test code=MO#) 1.06 K/mm3 0.1-0.8 EOSINOPHIL # (test code=EO#) 0.3 K/mm3 0.0-0.2 BASOPHIL # (test code=BA#) 0.06 K/mm3 0.0-0.2 NUCLEATED RBC # (test code=NRBC#) 0.0 K/mm3 0.0-0.1 FE W/TOTAL IRON BINDING CAP.2018-12-17 06:45:00* Test Item Value Reference Range Comments SERUM IRON (test code=IRON) 21 MCG/DL 37-170 TOTAL IRON BINDING CAPACITY (test code=TIBC) 416 MCG/DL 265-497 IRON SATURATION (test code=FESAT) 5 % 12-57 BASIC METABOLIC [id number] 06:41:00* Test Item Value Reference Range Comments SODIUM (test code=NA) 129 MMOL/L 137-145 POTASSIUM (test code=K) 4.3 MMOL/L 3.5-5.1 CHLORIDE (test code=CL) 96 MMOL/L 98-107 CARBON DIOXIDE (test code=CO2) 26 MMOL/L 22-30 GLUCOSE (test code=GLU) 104 MG/DL 74-106 BLOOD UREA NITROGEN (test code=BUN) 21 MG/DL 7-17 GLOMERULAR FILTRATION RATE (test code=GFR) > 60 Reporting units: ml/min/1.73 m2 (Modified MDRD Formula)Reference Range: > or=60 ml/min/1.73 m2 CREATININE (test code=CREAT) 0.90 MG/DL 0.52-1.04 CALCIUM (test code=CA) 9.0 MG/DL 8.4-10.2 FE W/TOTAL IRON BINDING CAP.2018-12-17 06:36:00* Test Item Value Reference Range Comments SERUM IRON (test code=IRON) 21 MCG/DL 37-170 TOTAL IRON BINDING CAPACITY (test code=TIBC) MCG/DL 265-497 IRON SATURATION (test code=FESAT) % 12-57 HGB [id number] 17:32:00* Test Item Value Reference Range Comments HEMOGLOBIN (test code=HGB) 8.8 G/DL 11.2-14.9 PT GOT 1 UNIT OF BLOOD HEMATOCRIT (test code=HCT) 28.8 % 33.2-43.5 Is this a LINE draw? NB-TYPE NATRIURETIC [id number] 07:39:00* Test Item Value Reference Range Comments B-TYPE NATRIURETIC PEPTIDE (test code=BNP) 66.0 PG/ML 0-100 BASIC METABOLIC [id number] 07:11:00* Test Item Value Reference Range Comments SODIUM (test code=NA) 128 MMOL/L 137-145 POTASSIUM (test code=K) 4.4 MMOL/L 3.5-5.1 CHLORIDE (test code=CL) 98 MMOL/L 98-107 CARBON DIOXIDE (test code=CO2) 22 MMOL/L 22-30 ANION GAP (test code=GAP) 12 MMOL/L 14-24 GLUCOSE (test code=GLU) 105 MG/DL 74-106 BLOOD UREA NITROGEN (test code=BUN) 23 MG/DL 7-17 GLOMERULAR FILTRATION RATE (test code=GFR) > 60 Reporting units: ml/min/1.73 m2 (Modified MDRD Formula)Reference Range: > or=60 ml/min/1.73 m2 CREATININE (test code=CREAT) 0.90 MG/DL 0.52-1.04 CALCIUM (test code=CA) 8.7 MG/DL 8.4-10.2 [id number] 07:11:00* Test Item Value Reference Range Comments TROPONIN-I (test code=TROPI) 0.355 NG/ML 0.012-0.033 CALLED TO MANNY & READBACK ON 12/16/18 AT 0710 BY Celso Gallegos CBC W/AUTO [id number] 06:41:00* Test Item Value Reference Range Comments WHITE BLOOD CELL (test code=WBC) 10.0 K/MM3 3.8-9.8 RED BLOOD CELL (test code=RBC) 3.36 M/MM3 3.58-4.97 HEMOGLOBIN (test code=HGB) 7.2 G/DL 11.2-14.9 HEMATOCRIT (test code=HCT) 24.2 % 33.2-43.5 MEAN CELL VOLUME (test code=MCV) 72 fL 80.7-99.1 MEAN CELL HGB (test code=MCH) 21.4 pg 27.0-34.1 MEAN CELL HGB CONCETRATION (test code=MCHC) 29.8 % 32.2-35.7 RED CELL DISTRIBUTION WIDTH (test code=RDW) 18.8 % 12.1-15.2 PLATELET COUNT (test code=PLT) 430 K/MM3 129-368 MEAN PLATELET VOLUME (test code=MPV) 9.1 fl 7.4-10.4 NEUTROPHIL % (test code=NT%) 48.8 % 43-75 IMMATURE GRANULOCYTE % (test code=IG%) 0.6 % 0.0-2.0 LYMPHOCYTE % (test code=LY%) 38.3 % 14-44 MONOCYTE % (test code=MO%) 10.5 % 4-13 EOSINOPHIL % (test code=EO%) 1.1 % 0-6 BASOPHIL % (test code=BA%) 0.7 % 0-2 NUCLEATED RBC % (test code=NRBC%) 0.2 % 0-1.0 NEUTROPHIL # (test code=NT#) 4.9 K/mm3 2.0-7.6 IMMATURE GRANULOCYTE # (test code=IG#) 0.06 x10 3/uL 0-0.03 LYMPHOCYTE # (test code=LY#) 3.8 K/mm3 1.0-3.8 MONOCYTE # (test code=MO#) 1.04 K/mm3 0.1-0.8 EOSINOPHIL # (test code=EO#) 0.1 K/mm3 0.0-0.2 BASOPHIL # (test code=BA#) 0.07 K/mm3 0.0-0.2 NUCLEATED RBC # (test code=NRBC#) 0.0 K/mm3 0.0-0.1 [id number] 00:36:00* Test Item Value Reference Range Comments TROPONIN-I (test code=TROPI) 0.629 NG/ML 0.012-0.033 CALLED TO PRABHAKAR Malik& READBACK ON 12/16/18 AT 0036 BY Ranjan Reyes - PULM VENT PERF [id number] 21:00:00 Patient Name: SPEEDY DE LEÓN Unit No: [id number] EXAMS: CPT CODE: [id number] PULM VENT PERF IMAG 80679 NUCLEAR MEDICINE VENTILATION PERFUSION SCAN LOCATION: B2 CLINICAL HISTORY: Shortness of breath. COMPARISON: Chest radiograph 12/15/2018. TECHNIQUE: A pulmonary ventilation scan was performed using 11 mCi Xe-133. A pulmonary perfusion scan was then performed using 4.6 mCi of Tc 99m MAA IV. FINDINGS: The pulmonary ventilation scan shows homogeneous uptake. The pulmonary perfusion scan shows no matched or mismatched defect. IMPRESSION: Low probability for pulmonary embolism. at 2100 Reported and signed by: Janet Hernández MD CC: Bj Lyle Technologist: Jose Francisco Barrios, RT(N) Transcrpt Date/Tm/Trnsp: 12/15/2018 (2099) Eduarda Orig Print D/T: S: 12/15/2018 (2102) ANASTACIA Lee NAME: SPEEDY DE LEÓN [address] PHYS: [place] [address] : 1940 AGE: 78 SEX: F LOC: Z.345 A PHONE #: [phone] EXAM DATE: 12/15/2018 STATUS: ADM IN FAX #: [phone] RADIOLOGY NO: PAGE 1 Signed Report URINALYSIS [id number] 20:29:00* Test Item Value Reference Range Comments UA COLOR (test code=COLU) YELLOW YELLOW UA APPEARANCE (test code=APPU) CLEAR CLEAR UA GLUCOSE DIPSTICK (test code=DGLUU) NORMAL MG/DL NORMAL UA BILIRUBIN DIPSTICK (test code=BILU) NEGATIVE MG/DL NEGATIVE UA KETONE DIPSTICK (test code=KETU) NEGATIVE MG/DL NEGATIVE UA SPECIFIC GRAVITY (test code=SGU) 1.005 1.003-1.030 UA BLOOD DIPSTICK (test code=SREEKANTH) NEGATIVE Mark/mm3 NEGATIVE UA PH DIPSTICK (test code=SAMREEN) 6.0 5.0-9.0 UA PROTEIN DIPSTICK (test code=PROU) NEGATIVE MG/DL NEGATIVE UA UROBILINIOGEN DIPSTICK (test code=URO) NORMAL MG/DL NORMAL UA NITRITE DIPSTICK (test code=SAEED) NEGATIVE NEGATIVE UA LEUKOCYTE ESTERASE DIPSTICK (test code=LEUU) NEGATIVE /mm3 NEGATIVE UA CULTURE NEEDED? (test code=UACULT) NEGATIVE, NO CULTURE Criteria Culture Chk URINALYSIS [id number] 20:28:00* Test Item Value Reference Range Comments UA COLOR (test code=COLU) YELLOW YELLOW UA APPEARANCE (test code=APPU) CLEAR CLEAR UA GLUCOSE DIPSTICK (test code=DGLUU) NORMAL MG/DL NORMAL UA BILIRUBIN DIPSTICK (test code=BILU) NEGATIVE MG/DL NEGATIVE UA KETONE DIPSTICK (test code=KETU) NEGATIVE MG/DL NEGATIVE UA SPECIFIC GRAVITY (test code=SGU) 1.005 1.003-1.030 UA BLOOD DIPSTICK (test code=SREEKANTH) NEGATIVE Mark/mm3 NEGATIVE UA PH DIPSTICK (test code=SAMREEN) 6.0 5.0-9.0 UA PROTEIN DIPSTICK (test code=PROU) NEGATIVE MG/DL NEGATIVE UA UROBILINIOGEN DIPSTICK (test code=URO) NORMAL MG/DL NORMAL UA NITRITE DIPSTICK (test code=SAEED) NEGATIVE NEGATIVE UA LEUKOCYTE ESTERASE DIPSTICK (test code=LEUU) NEGATIVE /mm3 NEGATIVE UA CULTURE NEEDED? (test code=UACULT) Criteria Culture Chk [id number] 18:50:00* Test Item Value Reference Range Comments D-DIMER (test code=DDIMER) 0.51 MG/L FEU 0-0.49 Negative Predictive Value cutoff for DVT & PE: <0.50 mg/L FEUInterpretation: A value of <0.50 mg/L FEU has a NegativePredictive Value in ruling out a DVT or PE diagnosis.A value of 0.50 mg/L or greater is considered Positive.Positive result cannot be used for the diagnosis of DVT andPE without using of standard radiological procedures. COMPREHENSIVE METABOLIC [id number] 18:23:00* Test Item Value Reference Range Comments SODIUM (test code=NA) 128 MMOL/L 137-145 POTASSIUM (test code=K) 5.4 MMOL/L 3.5-5.1 CHLORIDE (test code=CL) 94 MMOL/L 98-107 CARBON DIOXIDE (test code=CO2) 20 MMOL/L 22-30 ANION GAP (test code=GAP) 19 MMOL/L 14-24 GLUCOSE (test code=GLU) 154 MG/DL 74-106 BLOOD UREA NITROGEN (test code=BUN) 32 MG/DL 7-17 GLOMERULAR FILTRATION RATE (test code=GFR) > 60 Reporting units: ml/min/1.73 m2 (Modified MDRD Formula)Reference Range: > or=60 ml/min/1.73 m2 CREATININE (test code=CREAT) 0.90 MG/DL 0.52-1.04 TOTAL PROTEIN (test code=PROT) 7.7 G/DL 6.3-8.2 ALBUMIN (test code=ALB) 4.4 G/DL 3.5-5.0 CALCIUM (test code=CA) 9.7 MG/DL 8.4-10.2 BILIRUBIN TOTAL (test code=BILT) 0.2 MG/DL 0.2-1.3 SGOT/AST (test code=AST) 45 UNITS/L 14-36 SGPT/ALT (test code=ALT) 10 UNITS/L 9-52 ALKALINE PHOSPHATASE (test code=ALKP) 75 UNITS/L 38-126 LIPOPROTEIN LDL [id number] 18:23:00* Test Item Value Reference Range Comments LIPOPROTEIN LDL DIRECT (test code=LDLDIR) 145 mg/dL 100-129 Reference Interval: mg/dL mmol/L Optimal <100 <2.6Near/above optimal 100-129 2.6- 3.3Borderline High 130-159 3.4-4.1High 160-189 4.1-4.9Very High >=190 >=4.9=========This LDL result is a direct measurement.========= NT PRO-BRAIN NATRIURETIC [id number] 18:23:00* Test Item Value Reference Range Comments NT PRO-BRAIN NATRIURETIC PEPTI (test code=PROBNP) 635.0 pg/mL 0-450 NT PRO-BNP IS THE REPLACEMENT ASSAY FOR BNP. [id number] 18:23:00* Test Item Value Reference Range Comments TROPONIN-I (test code=TROPI) 0.625 NG/ML 0.012-0.033 CALLED TO Soibhan MARTINEZ & READBACK ON 12/15/18 AT 1757 BY Addis Pollard COMPREHENSIVE METABOLIC [id number] 18:00:00* Test Item Value Reference Range Comments SODIUM (test code=NA) 128 MMOL/L 137-145 POTASSIUM (test code=K) 5.4 MMOL/L 3.5-5.1 CHLORIDE (test code=CL) 94 MMOL/L 98-107 CARBON DIOXIDE (test code=CO2) 20 MMOL/L 22-30 ANION GAP (test code=GAP) 19 MMOL/L 14-24 GLUCOSE (test code=GLU) 154 MG/DL 74-106 BLOOD UREA NITROGEN (test code=BUN) 32 MG/DL 7-17 GLOMERULAR FILTRATION RATE (test code=GFR) > 60 Reporting units: ml/min/1.73 m2 (Modified MDRD Formula)Reference Range: > or=60 ml/min/1.73 m2 CREATININE (test code=CREAT) 0.90 MG/DL 0.52-1.04 TOTAL PROTEIN (test code=PROT) 7.7 G/DL 6.3-8.2 ALBUMIN (test code=ALB) 4.4 G/DL 3.5-5.0 CALCIUM (test code=CA) 9.7 MG/DL 8.4-10.2 BILIRUBIN TOTAL (test code=BILT) 0.2 MG/DL 0.2-1.3 SGOT/AST (test code=AST) 45 UNITS/L 14-36 SGPT/ALT (test code=ALT) 10 UNITS/L 9-52 ALKALINE PHOSPHATASE (test code=ALKP) 75 UNITS/L 38-126 LIPOPROTEIN LDL [id number] 18:00:00* Test Item Value Reference Range Comments LIPOPROTEIN LDL DIRECT (test code=LDLDIR) mg/dL 100-129 NT PRO-BRAIN NATRIURETIC [id number] 18:00:00* Test Item Value Reference Range Comments NT PRO-BRAIN NATRIURETIC PEPTI (test code=PROBNP) 635.0 pg/mL 0-450 NT PRO-BNP IS THE REPLACEMENT ASSAY FOR BNP. [id number] 18:00:00* Test Item Value Reference Range Comments TROPONIN-I (test code=TROPI) 0.625 NG/ML 0.012-0.033 CALLED TO Siobhan MARTINEZ & READBACK ON 12/15/18 AT 1757 BY Addis Pollard COMPREHENSIVE METABOLIC [id number] 17:57:00* Test Item Value Reference Range Comments SODIUM (test code=NA) 128 MMOL/L 137-145 POTASSIUM (test code=K) 5.4 MMOL/L 3.5-5.1 CHLORIDE (test code=CL) 94 MMOL/L 98-107 CARBON DIOXIDE (test code=CO2) 20 MMOL/L 22-30 ANION GAP (test code=GAP) 19 MMOL/L 14-24 GLUCOSE (test code=GLU) 154 MG/DL 74-106 BLOOD UREA NITROGEN (test code=BUN) 32 MG/DL 7-17 GLOMERULAR FILTRATION RATE (test code=GFR) > 60 Reporting units: ml/min/1.73 m2 (Modified MDRD Formula)Reference Range: > or=60 ml/min/1.73 m2 CREATININE (test code=CREAT) 0.90 MG/DL 0.52-1.04 TOTAL PROTEIN (test code=PROT) 7.7 G/DL 6.3-8.2 ALBUMIN (test code=ALB) 4.4 G/DL 3.5-5.0 CALCIUM (test code=CA) 9.7 MG/DL 8.4-10.2 BILIRUBIN TOTAL (test code=BILT) 0.2 MG/DL 0.2-1.3 SGOT/AST (test code=AST) 45 UNITS/L 14-36 SGPT/ALT (test code=ALT) 10 UNITS/L 9-52 ALKALINE PHOSPHATASE (test code=ALKP) 75 UNITS/L 38-126 NT PRO-BRAIN NATRIURETIC [id number] 17:57:00* Test Item Value Reference Range Comments NT PRO-BRAIN NATRIURETIC PEPTI (test code=PROBNP) 635.0 pg/mL 0-450 NT PRO-BNP IS THE REPLACEMENT ASSAY FOR BNP. [id number] 17:57:00* Test Item Value Reference Range Comments TROPONIN-I (test code=TROPI) NG/ML 0.0-0.045 COMPREHENSIVE METABOLIC [id number] 17:44:00* Test Item Value Reference Range Comments SODIUM (test code=NA) 128 MMOL/L 137-145 POTASSIUM (test code=K) 5.4 MMOL/L 3.5-5.1 CHLORIDE (test code=CL) 94 MMOL/L 98-107 CARBON DIOXIDE (test code=CO2) 20 MMOL/L 22-30 ANION GAP (test code=GAP) 19 MMOL/L 14-24 GLUCOSE (test code=GLU) 154 MG/DL 74-106 BLOOD UREA NITROGEN (test code=BUN) 32 MG/DL 7-17 GLOMERULAR FILTRATION RATE (test code=GFR) > 60 Reporting units: ml/min/1.73 m2 (Modified MDRD Formula)Reference Range: > or=60 ml/min/1.73 m2 CREATININE (test code=CREAT) 0.90 MG/DL 0.52-1.04 TOTAL PROTEIN (test code=PROT) 7.7 G/DL 6.3-8.2 ALBUMIN (test code=ALB) 4.4 G/DL 3.5-5.0 CALCIUM (test code=CA) 9.7 MG/DL 8.4-10.2 BILIRUBIN TOTAL (test code=BILT) 0.2 MG/DL 0.2-1.3 SGOT/AST (test code=AST) 45 UNITS/L 14-36 SGPT/ALT (test code=ALT) 10 UNITS/L 9-52 ALKALINE PHOSPHATASE (test code=ALKP) 75 UNITS/L 38-126 NT PRO-BRAIN NATRIURETIC [id number] 17:44:00* Test Item Value Reference Range Comments NT PRO-BRAIN NATRIURETIC PEPTI (test code=PROBNP) pg/mL 0-450 [id number] 17:44:00* Test Item Value Reference Range Comments TROPONIN-I (test code=TROPI) NG/ML 0.0-0.045 - XR CHEST [id number] 17:39:00 Patient Name: SPEEDY DE LEÓN Unit No: [id number] EXAMS: CPT CODE: [id number] XR CHEST 1V 16899 Exam: Chest portable semierect Location: D4 History: weakness Comparison: None Findings: The lungs are clear. No infiltrate or effusion is seen. The pulmonary vasculature is normal. The heart size is enlarged. Atherosclerosis involves the aorta. The mediastinal silhouette is unremarkable. The bony thorax is intact with degenerative changes noted. Impression: No acute disease. at 1739 Reported and signed by: Paddy العراقي M.D. CC: Bj Lyle Technologist: Jada Carbone RT(R); Josie Shields (RT) (AART) Transcrpt Date/Tm/Trnsp: 12/15/2018 (1739) Stefania Orig Print D/T: S: 12/15/2018 (6556) [facility] NAME: SPEEDY DE LEÓN [address] PHYS: [place] [address] : 1940 AGE: 78 SEX: F LOC: Z.ERS PHONE #: [phone] EXAM DATE: 12/15/2018 STATUS: PRE ER FAX #: [phone] RADIOLOGY NO: PAGE 1 Signed Report CBC W/O [id number] 17:29:00* Test Item Value Reference Range Comments WHITE BLOOD CELL (test code=WBC) 13.2 K/MM3 3.8-9.8 RED BLOOD CELL (test code=RBC) 4.07 M/MM3 3.58-4.97 HEMOGLOBIN (test code=HGB) 8.8 G/DL 11.2-14.9 HEMATOCRIT (test code=HCT) 28.7 % 33.2-43.5 MEAN CELL VOLUME (test code=MCV) 71 fL 80.7-99.1 MEAN CELL HGB (test code=MCH) 21.6 pg 27.0-34.1 MEAN CELL HGB CONCETRATION (test code=MCHC) 30.7 % 32.2-35.7 RED CELL DISTRIBUTION WIDTH (test code=RDW) 18.4 % 12.1-15.2 PLATELET COUNT (test code=PLT) 504 K/MM3 129-368 IMMATURE GRANULOCYTE % (test code=IG%) 0.8 % 0.0-2.0 NEUTROPHIL # (test code=NT#) 9.2 K/mm3 2.0-7.6 IMMATURE GRANULOCYTE # (test code=IG#) 0.11 x10 3/uL 0-0.03 LYMPHOCYTE # (test code=LY#) 2.9 K/mm3 1.0-3.8 MONOCYTE # (test code=MO#) 0.87 K/mm3 0.1-0.8 EOSINOPHIL # (test code=EO#) 0.0 K/mm3 0.0-0.2 BASOPHIL # (test code=BA#) 0.07 K/mm3 0.0-0.2 NUCLEATED RBC # (test code=NRBC#) 0.0 K/mm3 0.0-0.1 POC VENOUS BLOOD [id number] 17:21:00* Test Item Value Reference Range Comments POC LACTIC ACID (test code=POCLAC) 3.84 MMOL/L 0.4-2.0 POC VENOUS BLOOD GAS PH (test code=POCPHV) 7.395 7.35-7.45 POC VENOUS BLOOD GAS PCO2 (test code=VUJPEQ2A) 32.5 mmHg 35.0-45.0 POC VENOUS BLOOD GAS PO2 (test code=RSMDO8L) 17.0 mmHG 0-40 POC HCO3 VENOUS (test code=QQNODC3O) 19.9 MMOL/L 20-26 POC BASE EXCESS VENOUS (test code=POCBEV) -5 MMOL/L -3.0-3.0 POC O2 SATURATION VENOUS (test code=VLBQ5QZ) 26 % 72-77 INTERVERTEBRAL [id number] 15:04:00 RUN DATE: 10/12/18 [facility] PAGE 1 RUN TIME: 1505 Specimen Inqui ry RUN USER: INTERFACE PATIENT: SPEEDY DE LEÓN ACCT #: [id number] LOC: ANDRES U #: [id number] AGE/SX: 78/F ROOM: [facility] RE10/10/18REG DR: Bernard Hodges MD : 42 BED: A DIS: 10/11/18 STATUS: DIS Marissa TLOC: SPEC #: [id number] RECD: 10/11/18 STATUS: KRUNAL REBree #: [phone] NICHOLAS: 10/10/18- SUBM DR: Bernard Hodges MD ENTERED: 10/11/18 SP TYPE: INT DISC OTHR DR: Lobo Joiner MD ORDERED: GROSS COPIES TO: Lobo Ness MD [address] [place] [address] Bernard Hodges MD [address] [facility]. [address] [place] [address] PROCEDURES: GROSS (-1117) TISSUES: LUMBAR VERTEBRA, NOS - L3-4 CLINICAL HIST ORY COLLECTION DATE: 10/10/2018 LEFT L3-4 DISC HERNIATION TANYA L DIAGNOSIS Lumbar disc, left side, L3-4, lumbar laminectomy, medial facetect yadi and microsurgical discectomy: INTRAVERTEBRAL DISC MATERIAL WITH VANNA E ATTACHED GRANULATION TISSUE CONSISTENT WITH DISC HERNIATION NEGATIVE FOR MALIGNANCY DMW/gm D 12740, 00603 MACROSCOPIC The specimen is received in formalin labeled with the patient's name and iden tified as "lumbar disc". It consists of multiple romero-pink fragments of tissue and possible bone measuring 2.0 x 1.8 x 0.4 cm in aggregate. The tissue is e ntirely submitted in a single cassette for decalcification. CONTINUED ON NEXT PAGE RUN DATE: 10/12/18 [facility] PAGE 2 RUN TIME: 1505 Specimen Inquiry RUN USER: IN ISELA SP EC #: [id number] PATIENT: SPEEDY DE LEÓN #[id number] ( Continued) MACROSCOPIC (Continued) GROSS PE RFORMED AT [facility] [address] [place] [address] [phone] MICROSCOPIC MICROSCOPIC PERFO RMED AT [facility] All of the stains, including any controls perfo rmed, stain appropriately. [facility] [address] [facility] [place] [address] [phone] PERFORMING SITE Processed at: [facility] [address] [facility] [place] [address] Signed SIGNATURE ON FILE Ange Hylton 10/12/[address] PELVIS [id number] 16:45:00 [place] [address] Patient Name: SPEEDY DE LEÓN MR #: [id number] : 1940 Age/Sex: 78/F Req #: [id number] Adm Physician: Ordered by: LISET TAYLOR BOWLING BALL PATCHER Report #: [id number] Location: ER Room/Bed: Procedure: [id number] CT /CT PELVIS WO Exam Date: 10/02/18 Exam Time: 1540 REPORT STATUS: Signed EXAM: CT Pel vis WITHOUT contrast INDICATION: left hip pain r/o fx [id number] COMPARISON: None. TECHNIQUE: Pelvis were scanned utilizing a multide [employer] helical scanner from the iliac crest to the pubic symphysis without adm inistration of IV contrast. Coronal and sagittal reformations were obtained. R outine protocol was performed. IV CONTRAST: None ORAL CONTRAST: Water COMPLICATIONS: None RADIATION DOSE: Total DL P: 394.93 mGy*cm Estimated effective dose: (DLP x 0.015 x size factor) mS v CTDIvol has been reviewed. It is below the limits set by the Radiation Protocol Committee (RPC). FINDINGS: LINES and TUBES: None. GI T RACT: No evidence of bowel obstruction. Severe diverticulosis of the visualize d colon without evidence of diverticulitis. PELVIC ORGANS/BLADDER: Uterus and adnexa are unremarkable on unenhanced CT assessment. Bladder is not fully distended and appears unremarkable. LYMPH NODES: No lymphadenopathy. V ESSELS: Mild aortoiliac atherosclerotic calcification. PERITONEUM / RETROPE RITONEUM: No free air or fluid. BONES: Degenerative changes of lower lumbar spine. No acute osseous abnormality. SOFT TISSUES: Unremarkable. IMPRESSION: 1. No evidence of left hip fracture. 2. Colonic div erticulosis without evidence of diverticulitis. Signed by: Dr. Keily Queen i, MD on 10/02/2018 4:54 PM Dictated By: KEILY GAFFNEY MD 53 Transcribed By: JAVED on 1653 COPY TO: LISET TAYLOR NP
--- NOTE | 2019-07-06 22:00 | NUR ---
pt pressed call viramontes, asking for morphine for ABRAHAM. awake alert skin w/d resp nonlab. nad noted. md aware, no new orders
--- NOTE | 2019-07-06 22:05 | NUR ---
explained to patient NIURKA states he cannot order morphine for ABRAHAM due to low sodium and potential side effects of morphine masking developing sx. asked pt what she takes at home, reports she take tylenol arthritis, advised I could request order for tylenol, pt states "no, that won't work. I need morphine." erp aware
--- NOTE | 2019-07-06 23:10 | NUR ---
pt pressed call viramontes, requesting pain medications. went to room with Dr Meza, pt states wants pain medications for chronic back pain r/t scoliosis and headache. states takes tylenol arthritis at home, advises he can give her tylenol, pt states will not help. offered chelo, pt agrees. also advised need to move her to hospital bed or place air mattress under her, pt refuses hospital bed, agrees to air mattress. placed pressure relieving air mattress under patient.
[2019-07-06] MEDS ORDERED: HYDROCODONE/APAP 5MG-325MG TAB PO ONE (23:15)
[2019-07-07] VITALS (8 sets, daily range): BP systolic 96–128; BP diastolic 55–77
[2019-07-07] MEDS ORDERED: QUETIAPINE FUMA25 MG PO (01:53)
[2019-07-07] MEDS ORDERED: LOSARTAN POTAS100 MG PO (01:53)
[2019-07-07] MEDS ORDERED: HUMIRA40 MG/0.8 (01:53)
[2019-07-07] MEDS ORDERED: CYMBALTA60 MG PO (01:53)
[2019-07-07] MEDS ORDERED: ALPRAZOLAM1 MG PO (01:53)
--- NOTE | 2019-07-07 02:30 | NUR ---
RECEIVED PATIENT FROM ER AOX3, NO SIGNS OF DISTRESS NOTED. PATIENT VOIDED IN DIAPER UPON ADMISSION AND WAS CLEANED THOROUGHLY. IV IS FLOWING AND PATENT AT ORDERED RATE, BED IS LOCK IN LOWEST POSITION POSSIBLE. BOTH SIDE RAILS ARE UP, CALL LIGHT IS WITHIN EASIEST REACH, WILL CONTINUE TO MONITOR.
[2019-07-07] MEDS: SODIUM CHLORIDE 0.9% 1000ML 1,000 ML IV SCH (04:27)
[2019-07-07 05:10] LABS: BASOPHILS % 0.5 % (0.0-1.0); EOSINOPHILS # (AUTO) 0.2 (0.0-0.4); EOSINOPHILS % 2.2 % (0.0-6.0); HEMATOCRIT 30.6 % (34.2-44.1); LYMPHOCYTES # (AUTO) 3.3 (1.0-3.2); LYMPHOCYTES % 43.3 % (18.0-39.1); MEAN CORPUSCULAR HEMOGLOBIN 27.4 pg (28-32); MEAN CORPUSCULAR HGB CONC 32.7 g/dL (31-35); MEAN CORPUSCULAR VOLUME 83.8 fL (81-99); MONOCYTES # (AUTO) 0.8 (0.2-0.8); MONOCYTES % 10.4 % (4.4-11.3); NEUTROPHILS # (AUTO) 3.3 (2.1-6.9); NEUTROPHILS % 43.1 % (38.7-80.0); PLATELET COUNT 337 x10e3/uL (140-360); RED BLOOD COUNT 3.65 x10e6/uL (3.6-5.1); RED CELL DISTRIBUTION WIDTH 16.9 % (11.7-14.4)
[2019-07-07 05:30] LABS: ALANINE AMINOTRANSFERASE 7 IU/L (0-55); ALBUMIN 3.4 g/dL (3.5-5.0); ALBUMIN/GLOBULIN RATIO 1.2 (0.8-2.0); ALKALINE PHOSPHATASE 56 IU/L (40-150); ANION GAP 11.8 mmol/L (8-16); BLOOD UREA NITROGEN 13 mg/dL (7-26); BUN/CREATININE RATIO 17 (6-25); CALCIUM 8.8 mg/dL (8.4-10.2); CARBON DIOXIDE 25 mmol/L (22-29); CHLORIDE 89 mmol/L (98-107); CREATININE, SERUM 0.77 mg/dL (0.57-1.11); EST GLOMERULAR FILTRATION RATE > 60 ML/MIN (60-); GLUCOSE 93 mg/dL (74-118); POTASSIUM 4.8 mmol/L (3.5-5.1); SODIUM 121 mmol/L (136-145)
[2019-07-07] MEDS: METOPROLOL TARTRATE 50 MG TAB PO SCH ×2 (09:55→10:58)
[2019-07-07] MEDS: LOSARTAN POTASSIUM 100 MG TAB PO SCH (09:55)
[2019-07-07] MEDS ORDERED: ACETAMINOPHEN650 MG RC (12:10)
[2019-07-07] MEDS ORDERED: VITAMIN B-121000 MCG PO (12:10)
[2019-07-07] MEDS ORDERED: VITAMIN D1000 UNI1 PO (12:10)
[2019-07-07] MEDS ORDERED: PANTOPRAZOLE SO40 MG PO (12:10)
[2019-07-07] MEDS ORDERED: ACETAMINOPHEN650 M3 PO (12:27)
[2019-07-07] MEDS: DULOXETINE HCL 30 MG DELAYED RELEASE PO SCH (12:46)
[2019-07-07] MEDS: PANTOPRAZOLE SOD 40 MG TABEC PO SCH (14:17)
[2019-07-07] MEDS: CYANOCOBALAMIN 1,000 MCG TAB PO SCH (16:41)
[2019-07-07] MEDS: CHOLECALCIFEROL 1,000 UNIT TAB PO SCH (16:41)
[2019-07-07 17:45] LABS: ANION GAP 11.8 mmol/L (8-16); BLOOD UREA NITROGEN 14 mg/dL (7-26); BUN/CREATININE RATIO 18 (6-25); CALCIUM 8.5 mg/dL (8.4-10.2); CARBON DIOXIDE 24 mmol/L (22-29); CHLORIDE 92 mmol/L (98-107); CREATININE, SERUM 0.76 mg/dL (0.57-1.11); EST GLOMERULAR FILTRATION RATE > 60 ML/MIN (60-); GLUCOSE 110 mg/dL (74-118); POTASSIUM 4.8 mmol/L (3.5-5.1); SODIUM 123 mmol/L (136-145)
--- NOTE | 2019-07-07 20:26 | NUR ---
Got report from IMCU nurse. Patient arrived via stretcher/bed. Call light within reach.
--- NOTE | 2019-07-07 20:31 | NUR ---
reports given to Mi MCCOY and patient just transferred to rm 100 she is awake alert oriented, no distress noted. bed alarm is on
[2019-07-07] MEDS: QUETIAPINE FUMARATE 25 MG TAB PO SCH (21:33)
[2019-07-07] MEDS: SODIUM CHLORIDE 1 GM TAB PO SCH (21:33)
[2019-07-07] MEDS: ALPRAZOLAM 1 MG TAB PO PRN (21:33)
[2019-07-08] VITALS (8 sets, daily range): BP systolic 118–197; BP diastolic 56–86
[2019-07-08 05:21] LABS: BASOPHILS # (AUTO) 0.1 (0.0-0.1); BASOPHILS % 0.8 % (0.0-1.0); EOSINOPHILS # (AUTO) 0.2 (0.0-0.4); EOSINOPHILS % 3.4 % (0.0-6.0); HEMATOCRIT 29.7 % (34.2-44.1); HEMOGLOBIN 9.7 g/dL (12.0-16.0); MEAN CORPUSCULAR HEMOGLOBIN 27.3 pg (28-32); MEAN CORPUSCULAR HGB CONC 32.7 g/dL (31-35); MEAN CORPUSCULAR VOLUME 83.7 fL (81-99); MONOCYTES # (AUTO) 0.7 (0.2-0.8); MONOCYTES % 10.2 % (4.4-11.3); NEUTROPHILS # (AUTO) 2.6 (2.1-6.9); NEUTROPHILS % 39.3 % (38.7-80.0); PLATELET COUNT 314 x10e3/uL (140-360); RED BLOOD COUNT 3.55 x10e6/uL (3.6-5.1); RED CELL DISTRIBUTION WIDTH 17.3 % (11.7-14.4)
[2019-07-08 05:40] LABS: ANION GAP 11.7 mmol/L (8-16); BLOOD UREA NITROGEN 14 mg/dL (7-26); BUN/CREATININE RATIO 18 (6-25); CALCIUM 8.6 mg/dL (8.4-10.2); CARBON DIOXIDE 24 mmol/L (22-29); CHLORIDE 96 mmol/L (98-107); CREATININE, SERUM 0.77 mg/dL (0.57-1.11); EST GLOMERULAR FILTRATION RATE > 60 ML/MIN (60-); GLUCOSE 92 mg/dL (74-118); POTASSIUM 4.7 mmol/L (3.5-5.1); SODIUM 127 mmol/L (136-145)
--- NOTE | 2019-07-08 07:08 | NUR ---
Gave report to oncoming nurse. call light within reach. Patient in bed.
--- NOTE | 2019-07-08 07:45 | NUR ---
paged Dr. Howell's office; spoke with Dr. Sapp and informed him of pt's recent BMP results from 0500 this morning.
[2019-07-08] MEDS: DULOXETINE HCL 30 MG DELAYED RELEASE PO SCH (08:27)
[2019-07-08] MEDS: METOPROLOL TARTRATE 50 MG TAB PO SCH (08:27)
[2019-07-08] MEDS: LOSARTAN POTASSIUM 100 MG TAB PO SCH (08:27)
[2019-07-08] MEDS: PANTOPRAZOLE SOD 40 MG TABEC PO SCH (08:27)
[2019-07-08] MEDS: CYANOCOBALAMIN 1,000 MCG TAB PO SCH (08:27)
[2019-07-08] MEDS: SODIUM CHLORIDE 1 GM TAB PO SCH ×3 (08:27→20:34)
[2019-07-08] MEDS: ALPRAZOLAM 1 MG TAB PO PRN ×3 (08:27→18:08)
[2019-07-08] MEDS: CHOLECALCIFEROL 1,000 UNIT TAB PO SCH (08:27)
[2019-07-08] MEDS ORDERED: CLONIDINE HCL 0.1 MG TAB PO PRN (12:15)
--- NOTE | 2019-07-08 13:38 | Progress Note ---
DATE: Internal Medicine Progress Note SUBJECTIVE: The patient came here with hyponatremia. She is doing better. Sodium is 127. We are going to continue with the sodium tablets, repeat BMP tomorrow if sodium more than 128, but less than 145 patient can go home. PHYSICAL EXAMINATION: VITAL SIGNS: Blood pressure 187/86, temperature 96.6, heart rate 79 per minute, respiratory rate 16 per minute, O2 saturation 92%. HEART: Showed regular rhythm. Normal S1 and S2 sound. LUNGS: Clear bilaterally. ABDOMEN: Soft. EXTREMITIES: Show no evidence of cyanosis or hematoma. LABORATORY DATA: On the BMP; sodium 127, potassium 4.7, chloride 96, CO2 of 24, BUN 14, creatinine 0.77, glucose 92. On the CBC; white count 6.48, hemoglobin 9.7, hematocrit 29.7, platelet count of 113,000, PT 11.7, INR was 0.81, PTT 26.2. AST 15, ALT 7, total bilirubin 0.2, alkaline phosphatase of 56. IMPRESSION: 1. Hyponatremia. 2. Chronic anemia. 3. Hypertensive urgency. 4. Obesity. 5. Anemia. PLAN OF TREATMENT: We are going to continue sodium chloride 2 g three times a day, Zofran 4 mg IV q.4 hours, alprazolam 1 mg three times a day, losartan 100 mg daily, metoprolol 100 mg daily, vitamin B12 1000 mcg daily, Seroquel 25 mg at bedtime, Protonix 40 mg daily, Cymbalta 60 mg daily, cholecalciferol 2000 units daily. We are going to start her on Norvasc 10 mg daily and clonidine 0.2 mg q.4 hours as needed for hypertension. The patient is under better control and if sodium of more than 128, but less than 145, the patient might be able to go home. MD RENA Sims/TANISHA /[phone]
[2019-07-08] MEDS: AMLODIPINE BESYLATE 10 MG TAB PO SCH (14:27)
--- NOTE | 2019-07-08 18:45 | NUR ---
GOT REPORT FROM PREVIOUS NURSE. CALL LIGHT WITHIN REACH. PATIENT IN BED.
[2019-07-08] MEDS: ACETAMINOPHEN 325 MG TAB PO PRN (18:49)
--- NOTE | 2019-07-08 18:53 | NUR ---
report given to oncoming overnight stocker nurse. pt resting in bed, call light within reach.
--- NOTE | 2019-07-08 19:17 | NUR ---
REPORT GIVEN TO TECHNICAL EDUCATION TEACHER RN, PT IN STABLE CONDITION, DENIES PAIN, NO OTHER CO VOICED CALL LIGHT IN REACH WILL CONTINUE TO MONITOR
[2019-07-08] MEDS: QUETIAPINE FUMARATE 25 MG TAB PO SCH (20:34)
[2019-07-09] VITALS (7 sets, daily range): BP systolic 118–168; BP diastolic 55–70
--- NOTE | 2019-07-09 03:07 | Consultation ---
DATE OF CONSULTATION: 07/08/2019 REASON FOR CONSULT: Hyponatremia. HISTORY OF PRESENT ILLNESS: This is a 79-year-old female, who was admitted with nausea and dysuria, but mostly with weakness. The patient was unable to move much. The patient was diagnosed with hyponatremia upon admission. REVIEW OF SYSTEMS: No fever. No nasal congestion. No coughing. No wheezing. No abdominal pain. No blood in the stool. No blood in the urine. No skin rash. No chest pain. No enlarged lymph nodes, basically otherwise negative. All pertinent as above per HPI. ALLERGIES: CIPRO. PAST MEDICAL HISTORY: Include: 1. Hypertension. 2. UTI. 3. Anxiety. 4. Hyperlipidemia. PAST SURGICAL HISTORY: Includes: 1. Cholecystectomy. 2. Appendectomy. 3. Back surgery. 4. Cataract surgery. FAMILY HISTORY: Negative. SOCIAL HISTORY: No smoking, no alcohol, no drugs. PHYSICAL EXAMINATION: GENERAL: Alert, following commands. HEENT: Pupils are equal and reactive to light and accommodation. NECK: No JVD. No bruit. LUNGS: No rhonchi. No rales. HEART: Regular rate and rhythm. No S3. No S4. ABDOMEN: Nontender and nondistended. No hepatomegaly or splenomegaly. EXTREMITIES: No clubbing, cyanosis, or edema. NEUROLOGIC: Cranial nerves II through XII grossly intact. Sensation intact. Motor intact. SKIN: No lesion. VITAL SIGNS: Pulse 87, blood pressure 131/59. LABORATORY DATA: Chest x-ray, negative. CT of head, moderate microvascular ischemic changes with mild generalized parenchymal volume loss. Hemoglobin upon admission 11.9. Sodium was 118. Urinalysis negative. Urine osmolalities, pending. CURRENT MEDICATIONS: Sodium chloride tablet, Zofran, metoprolol, cyanocobalamin, clonidine, alprazolam, quetiapine, Protonix, fluoxetine, cholecalciferol, and amlodipine. ASSESSMENT AND PLAN: Hyponatremia. I think this is most likely secondary to decreased sodium intake. Currently, I do not have osmolalities still pending, but the patient is improving with sodium tablets, currently relates the sodium is 127. The patient probably can go home in the morning if her sodium is stable. What important is to follow up on the modalities. If the patient is being discharged in the morning of 07/09, we will follow up on her in 1-2 weeks in the office with labs to make sure that the sodium continues to improve and there is no hyponatremia. The patient might need to be discharged on sodium chloride tablet. Thank you very much. Dennys Sapp MD MA/TANISHA /[id number]
[2019-07-09 05:15] LABS: ANION GAP 11.2 mmol/L (8-16); BLOOD UREA NITROGEN 13 mg/dL (7-26); BUN/CREATININE RATIO 18 (6-25); CALCIUM 8.7 mg/dL (8.4-10.2); CARBON DIOXIDE 26 mmol/L (22-29); CHLORIDE 94 mmol/L (98-107); CREATININE, SERUM 0.72 mg/dL (0.57-1.11); EST GLOMERULAR FILTRATION RATE > 60 ML/MIN (60-); GLUCOSE 94 mg/dL (74-118); POTASSIUM 4.2 mmol/L (3.5-5.1); SODIUM 127 mmol/L (136-145)
--- NOTE | 2019-07-09 07:00 | NUR ---
bedside rounds complete no distress noted, pt in stable condition, denies pain at this time, call light in reach will continue to monitor
--- NOTE | 2019-07-09 07:20 | NUR ---
Gave report to oncoming nurse. Call light within reach. Patient asleep in bed.
[2019-07-09] MEDS: ALPRAZOLAM 1 MG TAB PO PRN ×2 (07:29→18:21)
--- NOTE | 2019-07-09 08:14 | NUR ---
spoke with dr hart re: blood culture results, order to hold discharge until sensitivity report received.
[2019-07-09] MEDS: CYANOCOBALAMIN 1,000 MCG TAB PO SCH (08:45)
[2019-07-09] MEDS: SODIUM CHLORIDE 1 GM TAB PO SCH ×3 (08:45→21:32)
[2019-07-09] MEDS: DULOXETINE HCL 30 MG DELAYED RELEASE PO SCH (08:45)
[2019-07-09] MEDS: LOSARTAN POTASSIUM 100 MG TAB PO SCH (08:45)
[2019-07-09] MEDS: CHOLECALCIFEROL 1,000 UNIT TAB PO SCH (08:45)
[2019-07-09] MEDS: AMLODIPINE BESYLATE 10 MG TAB PO SCH (08:45)
[2019-07-09] MEDS: PANTOPRAZOLE SOD 40 MG TABEC PO SCH (08:45)
[2019-07-09] MEDS: METOPROLOL TARTRATE 50 MG TAB PO SCH (08:45)
--- NOTE | 2019-07-09 09:36 | NUR ---
report given to receiving nurse, pt transferred upstairs to rm 215, pt left in stable condition
--- NOTE | 2019-07-09 09:40 | NUR ---
RCD PT FROM MED SURG 1 BY WHEEL CHAIR PT IS ALERT AND ORIENTED VITALS CHECKED PT RESTING ON BED BED LOW AND LOCKED CALL LIGHT IN REACH
[2019-07-09] MEDS ORDERED: SODIUM CHLORIDE 0.9% 250ML 250 ML ONE (12:05)
[2019-07-09] MEDS ORDERED: VANCOMYCIN 1GM/NS 250 ML 250 ML IV ONE (12:15)
--- NOTE | 2019-07-09 13:53 | Progress Note ---
DATE: Internal Medicine Progress Note SUBJECTIVE: The patient is feeling weak. PHYSICAL EXAMINATION: VITAL SIGNS: Blood pressure 134/64, temperature 37.6, heart rate 90 per minute, respiratory rate 16 per minute, and oxygen saturation 94%. HEART: Showed regular rhythm. Normal S1, S2 sound. LUNGS: Clear bilaterally. ABDOMEN: Soft. LABORATORY DATA: On the BMP; sodium 127, potassium 4.2, chloride 94, CO2 of 26, BUN 13, creatinine 0.72, glucose 94. CBC; white blood count 6.5, hemoglobin 9.7, hematocrit 29.7, and platelet count 314,000. PT 11.7, PTT 26.2. INR 0.81. AST 15, ALT 7, total bilirubin 0.2, alkaline phosphatase 56. IMPRESSION: 1. Hyponatremia. 2. Chronic anemia. 3. Hypertensive urgency. 4. Obesity. 5. Possible bacteremia. PLAN OF TREATMENT: Repeat blood culture contaminant. Repeat a BMP tomorrow. She is going to continue the following medications: 1. Zofran 4 mg IV q.4 hours as needed. 2. Alprazolam 1 mg three times a day as needed. 3. Losartan 100 mg daily. 4. Metoprolol 100 mg daily. 5. Vitamin B12, 1000 mcg daily. 6. Clonidine 0.1 mg three times a day. 7. Seroquel 25 mg at bedtime. 8. Protonix 40 mg daily. 9. Tylenol 650 mg q.4 hours as needed. 10. Cymbalta 60 mg daily. 11. Sodium chloride 2 g three times a day. 12. Cholecalciferol 2000 units daily. 13. Amlodipine 10 mg daily. MD RENA Sims/TANISHA /[id number]
--- NOTE | 2019-07-09 15:53 | Diagnostic Imaging Report ---
EXAMINATION: PA and lateral views of the chest. COMPARISON: Portable chest 07/06/2019, chest 2 views 08/29/2012 CLINICAL HISTORY: Generalized weakness, CHF DISCUSSION: Lines/tubes: None. Lungs: The lungs are well inflated and clear. There is no evidence of pneumonia or pulmonary edema. Pleura: There is no pleural effusion or pneumothorax. Heart and mediastinum: Cardiomediastinal silhouette is unremarkable. Pulmonary vasculature is normal. Atherosclerotic calcification of the thoracic aortic arch. Stable rounded lucency with air-fluid level projecting in the retrocardiac region associated with a hiatal hernia. Bones and soft tissues: No acute bony abnormalities. Degenerative changes in the thoracic spine IMPRESSION: No acute cardiopulmonary abnormalities. Hiatal hernia Signed by: Dr. Ritesh Villanueva M.D. on 07/09/2019 3:50 PM
--- NOTE | 2019-07-09 18:39 | NUR ---
PT RESTING ON BED BED SIDE REPORT GIVEN TO ONCOMING NURSE
--- NOTE | 2019-07-09 19:00 | NUR ---
received report from day nurse. patient is resting comfortably in bed. bed is in lowest position and call viramontes is within reach. will continue to monitor patient.
[2019-07-09] MEDS: QUETIAPINE FUMARATE 25 MG TAB PO SCH (21:32)
[2019-07-09] MEDS: ACETAMINOPHEN 325 MG TAB PO PRN (22:03)
[2019-07-10] VITALS: BP 124/63
[2019-07-10 04:00] VITALS: BP 107/60
[2019-07-10 06:22] LABS: BASOPHILS # (AUTO) 0.1 (0.0-0.1); BASOPHILS % 0.8 % (0.0-1.0); EOSINOPHILS # (AUTO) 0.3 (0.0-0.4); EOSINOPHILS % 3.8 % (0.0-6.0); LYMPHOCYTES # (AUTO) 3.1 (1.0-3.2); MEAN CORPUSCULAR HGB CONC 32.3 g/dL (31-35); MEAN CORPUSCULAR VOLUME 83.8 fL (81-99); MONOCYTES # (AUTO) 0.8 (0.2-0.8); MONOCYTES % 10.7 % (4.4-11.3); NEUTROPHILS # (AUTO) 2.9 (2.1-6.9); NEUTROPHILS % 41.1 % (38.7-80.0); PLATELET COUNT 353 x10e3/uL (140-360); RED CELL DISTRIBUTION WIDTH 16.8 % (11.7-14.4)
--- NOTE | 2019-07-10 06:43 | NUR ---
report given to day nurse. patient is resting comfortably in bed. bed is in lowest position and call viramontes is within reach.
[2019-07-10 06:45] LABS: ALBUMIN 3.4 g/dL (3.5-5.0); ALBUMIN/GLOBULIN RATIO 1.2 (0.8-2.0); ALKALINE PHOSPHATASE 51 IU/L (40-150); BLOOD UREA NITROGEN 11 mg/dL (7-26); BUN/CREATININE RATIO 16 (6-25); CALCIUM 8.9 mg/dL (8.4-10.2); CARBON DIOXIDE 24 mmol/L (22-29); CHLORIDE 91 mmol/L (98-107); CREATININE, SERUM 0.68 mg/dL (0.57-1.11); EST GLOMERULAR FILTRATION RATE > 60 ML/MIN (60-); GLUCOSE 88 mg/dL (74-118); SODIUM 125 mmol/L (136-145)
[2019-07-10 06:47] LABS: ALANINE AMINOTRANSFERASE < 6 IU/L (0-55)
[2019-07-10 08:05] VITALS: BP 192/95
[2019-07-10] MEDS ORDERED: SODIUM CHLORIDE 0.9% 250ML 250 ML ONE (09:11)
[2019-07-10] MEDS: CHOLECALCIFEROL 1,000 UNIT TAB PO SCH (09:15)
[2019-07-10] MEDS: CYANOCOBALAMIN 1,000 MCG TAB PO SCH (09:15)
[2019-07-10] MEDS: SODIUM CHLORIDE 1 GM TAB PO SCH (09:15)
[2019-07-10] MEDS: AMLODIPINE BESYLATE 10 MG TAB PO SCH (09:16)
[2019-07-10] MEDS: DULOXETINE HCL 30 MG DELAYED RELEASE PO SCH (09:16)
[2019-07-10] MEDS: METOPROLOL TARTRATE 50 MG TAB PO SCH (09:16)
[2019-07-10] MEDS: PANTOPRAZOLE SOD 40 MG TABEC PO SCH (09:17)
[2019-07-10] MEDS: LOSARTAN POTASSIUM 100 MG TAB PO SCH (09:17)
[2019-07-10 09:19] VITALS: BP 192/95
[2019-07-10] MEDS ORDERED: VANCOMYCIN 1GM/NS 250 ML 250 ML IV ONE (09:30)
[2019-07-10] MEDS: ALPRAZOLAM 1 MG TAB PO PRN (10:13)
[2019-07-10 11:03] VITALS: BP 150/62
--- NOTE | 2019-07-10 11:25 | NUR ---
EDUCATED ABOUT IMM, SIGNED, FILED IN CHART, WITH COPY LEFT WITH FAMILY AT BEDSIDE.
[2019-07-10 15:25] VITALS: BP 135/90
--- NOTE | 2019-07-10 15:35 | NUR ---
Left AC IV discontinued. 2x2 gauze and tape placed. Taken via wheelchair by PCT to personal car. Accompanied by daughter and . AAOX4 to time, person, place, situation. Respirations even and unlabored. Denies pain. Discharge instructions, and all personal belongings taken with patient. No rx available at this time.
--- NOTE | 2019-07-10 16:36 | NUR ---
Dictated DC summary: [id number]
--- NOTE | 2019-07-10 17:13 | Discharge Summary ---
ADMIT DIAGNOSES: 1. Hyponatremia. 2. Physical debility. 3. Rheumatoid arthritis. 4. Anemia secondary to chronic disease. DISCHARGE DIAGNOSES: 1. Hyponatremia, resolving. 2. Physical debility. 3. Rheumatoid arthritis. 4. Anemia secondary to chronic disease. 5. Depression with anxiety. 6. Hypertensive heart disease. HOSPITAL COURSE: This is a 79-year-old white woman, who has known history of rheumatoid arthritis and anemia secondary to chronic disease. The patient was admitted to [facility] with diagnosis of profound hyponatremia. On admission, the patient's sodium was 118. During this hospitalization it did improve slightly. On discharge it was 125. The patient's generalized weakness resolved during this hospitalization. The patient did receive physical therapy during this hospital stay. The patient had a chest x-ray done during this hospitalization, which revealed findings consistent with hiatal hernia otherwise unremarkable. The patient also underwent a CT of the head during this hospitalization that did not reveal any acute intracranial abnormalities, but did reveal moderate microvascular ischemic changes as well as mild generalized parenchymal volume loss with frontal temporal predominance. The patient's brief hospitalization was unremarkable. CONDITION ON DISCHARGE: Stable. DISCHARGE MEDICATIONS: 1. Acetaminophen 1000 mg every 8 hours p.r.n. for severe arthritic pain. 2. Humira 40 mg subcutaneous injection every two weeks. 3. Alprazolam 1 mg t.i.d. p.r.n. anxiety. 4. Vitamin D3 2000 units daily. 5. Vitamin B12 1000 mcg daily. 6. Cymbalta 60 mg daily. 7. Losartan 100 mg daily. 8. Metoprolol tartrate 100 mg daily. 9. Pantoprazole 40 mg daily. 10. Seroquel 25 mg at bedtime. ALLERGIES: 1. CIPROFLOXACIN. 2. CODEINE. 3. IODINE. 4. TRAMADOL. FOLLOWUP INSTRUCTIONS: The patient was instructed to follow up with her attending, myself Dr. Lobo Ness within 1 week. The patient was instructed not to drink more than four glasses of water a day with each glass being 8 ounces of volume. The patient was instructed to resume of regular diet at home. MD SHAKILA Garcia/TANISHA /[id number] MTDD
== END 2019-07-10 15:34 | disposition home or self-care (01) | DRG 641 ==
LOC: ER 18:22 → ERHOLD 20:03 → IMCU 07-07 02:09 → MED/SURG 07-07 20:21 → MED/SURG2 07-09 09:40
PROVIDERS: ADMIT Internal Medicine; ATTEND Internal Medicine
DX: E87.1 Hypo-osmolality and hyponatremia (principal); R53.81 Other malaise; M06.9 Rheumatoid arthritis, unspecified; F41.8 Other specified anxiety disorders; F32.9 Major depressive disorder, single episode, unspecified; D63.8 Anemia in other chronic diseases classified elsewhere; I11.0 Hypertensive heart disease with heart failure; I50.9 Heart failure, unspecified; D64.9 Anemia, unspecified
CPT/HCPCS: 36415; 70450; 71045; 71046; 80048; 80053; 81001; 82550; 82553; 83605; 83880; 83935; 84300; 84484; 85025; 85610; 85730; 87040; 87071; 87086; 87205; 93005; 97139; 99284; J2405; J3370; J7030; J7050